=== PATIENT | female | born 1950 | race Caucasian/White ===

== ENCOUNTER 2016-12-31 09:29 | Outpatient (CLI) | payer MEDICARE, BC ==
--- NOTE | 2016-12-31 14:43 | CT ---
CT THORAX WITH IV CONTRAST: Date: 12-31-16 History: Follow up lung nodule. History of COPD. Comparison: 07-04-16 FINDINGS: There is a stable approximately 3 mm pulmonary nodule in the lateral aspect of the right middle lobe . No additional noncalcified pulmonary nodule or mass is seen. Calcified granuloma is again seen at the right lung base. No pleural effusion is identified. There is mild emphysematous changes seen wit hin the upper lobes. There is no evidence of lymphadenopathy. Vascular calcifications seen in the thoracic aorta as well as involving the visualized upper abdomin al aorta. Degenerative changes are seen in the thoracic spine. There is stable nodule involving the left adrenal gland. No other interval change. IMPRESSION: 1. Stable CT scan of thorax with stable approximately 3 mm nodule in the right middle lobe. No new p ulmonary nodule is seen. 2. Mild emphysematous changes in the upper lobes. 3. Stable nodular thickening left adrenal gland. POS: MORENO
[2016-12-31] MEDS ORDERED: Iopamidol 370 76% 100 ML VIAL ONE (16:30)
== END 2016-12-31 09:30 | disposition home or self-care (01) ==
LOC: CT 09:29
PROVIDERS: ATTEND Internal Medicine Critical Care Medicine
DX: J44.9 Chronic obstructive pulmonary disease, unspecified (principal); R91.1 Solitary pulmonary nodule
CPT/HCPCS: 36415; 71260; 82565

== ENCOUNTER 2017-11-07 10:43 | Outpatient (CLI) | payer MEDICARE, BC | END 2017-11-07 10:44 | disposition home or self-care (01) | LOC: BICMAMMO 10:43 | PROVIDERS: ATTEND Physician Assistant | DX: Z12.31 Encounter for screening mammogram for malignant neoplasm of breast (principal); R92.1 Mammographic calcification found on diagnostic imaging of breast; Z85.850 Personal history of malignant neoplasm of thyroid | CPT/HCPCS: 77063; 77067 ==

== ENCOUNTER 2018-02-26 13:23 | Outpatient (CLI) | payer MEDICARE, BC ==
--- NOTE | 2018-02-26 14:50 | CT ---
NONCONTRAST L0W DOSE CT THORAX: DATE: 02/26/2018. HISTORY: Smoking abuse. Right middle lobe pulmonary nodule. COMPARISON: 12/31/2016. FINDINGS: Again noted are emphysematous changes within the lungs bilaterally greater in the upper lobes. There is a stable noncalcified approximately 3 mm pulmonary nodule in the lateral right middle lobe. There is a tiny subpleural nodular density measuring less than 3 mm within the anterior aspect of th e left upper lobe. No additional noncalcified pulmonary nodule or mass is seen within the lungs. Calcified granuloma is again seen at the right lung base. Lack of intravenous contrast limits evaluation of the mediastinal structures and vasculature. Vascular calcifications are seen in the coronary arteries as well as involving the thoracic aorta. Visualized upper abdomen shows a grossly normal nonenhanced CT appearance. Mild degenerative changes are seen in the spine. IMPRESSION: 1. Lung RADS category 2, pulmonary nodule measuring 3 mm in the right middle lobe with tiny nodular density in the anterior left upper lobe which is stable since 2016 and has a low likelihood of becomi ng a clinically active cancer due to small size and stability. Continued annual screening with low-d ose CT scan in 12 months is recommended. 2. Vascular calcifications. POS: CATHLEEN
== END 2018-02-26 13:24 | disposition home or self-care (01) ==
LOC: CT 13:23
PROVIDERS: ATTEND Internal Medicine Critical Care Medicine
DX: Z87.891 Personal history of nicotine dependence (principal); J44.9 Chronic obstructive pulmonary disease, unspecified; R91.1 Solitary pulmonary nodule; J98.4 Other disorders of lung; I25.10 Atherosclerotic heart disease of native coronary artery without angina pectoris; I70.0 Atherosclerosis of aorta
CPT/HCPCS: G0297

== ENCOUNTER 2018-09-30 14:56 | Outpatient (CLI) | payer MEDICARE, BC ==
--- NOTE | 2018-09-30 16:12 | BD ---
Exam: DEXA Bone Density 09/30/18 HISTORY: Osteoporosis screening. COMPARISON: None. FINDINGS: Lumbar Spine: BMD (g/cm2) T-SCORE Z-SCORE L1 0.684 -2.8 -0.9 L2 0.723 -2.8 -0.7 L3 0.684 -3.6 -1.4 L4 0.638 -3.8 -1.6 L1-L4 0.682 -3.3 -1.2 WHO classification: Osteoporosis. Left Femoral Neck: 0.569 -2.5 -0.7 Total Femur: 0.659 -2.3 -0.8 WHO classification: Osteoporosis. Impression: Osteoporosis with elevated fracture risk. POS: HOME
== END 2018-09-30 14:57 | disposition home or self-care (01) ==
LOC: BICMAMMO 14:56
PROVIDERS: ATTEND Physician Assistant
DX: M81.0 Age-related osteoporosis without current pathological fracture (principal)
CPT/HCPCS: 77080

== ENCOUNTER 2019-02-26 11:43 | Outpatient (CLI) | payer MEDICARE, BC ==
--- NOTE | 2019-02-26 12:11 | CT ---
CT pulmonary lung scan without IV contrast INDICATION: Lung cancer screening protocol; history of tobacco use;current smoker of 55 years COMPARISON: CT of the chest dated July 04, [address] lung cancer screening evaluation dated 2017. FINDINGS: LUNGS: Nodules\mass: 3 mm right middle lobe pulmonary nodule has been stable since 2017 and is benign. There is a calcified granuloma in the right lower lobe. No suspicious pulmonary nodules evident. Emphysema: Stable moderate emphysema Additional findings: There are scattered coronary artery and thoracic aortic calcifications. Mediastinum: No lymphadenopathy. Upper abdomen: No abnormality. Osseous structures: There is scattered degenerative and osteoarthritic change present. IMPRESSION: Lung-RADS Category 1: Negative- Continue annual screening with LDCT in 12 months. Category S: None. Category C: Not applicable.
== END 2019-02-26 11:44 | disposition home or self-care (01) ==
LOC: CT 11:43
PROVIDERS: ATTEND Internal Medicine Critical Care Medicine
DX: R91.1 Solitary pulmonary nodule (principal); F17.210 Nicotine dependence, cigarettes, uncomplicated
CPT/HCPCS: G0297

== ENCOUNTER 2020-05-16 11:36 | Outpatient (CLI) | payer MEDICARE, BC ==
--- NOTE | 2020-05-16 13:02 | CT ---
EXAM: CT Pulmonary Lung Scan PROVIDED CLINICAL HISTORY: Tobacco abuse. 55 year history of smoking. History of thyroid cancer. COMPARISON: 02/26/2019 FINDINGS: A 4 mm right middle lobe pulmonary nodule is again seen laterally and is unchanged in size. A calcifi ed granuloma is again seen in the right lower lobe. A very tiny less than 3 mm nodular density is seen along the left major fissure also seen on prior study and probably related to interfissural lymp h node. Mild linear densities are seen in the posteromedial right lung base likely due to mild scarring. Emph ysematous changes are again seen throughout the lungs bilaterally. No consolidation or pleural effusion is identified. Vascular calcifications are seen in the thoracic aorta. There is limited evaluation of the mediastina l structures due to lack of intravenous contrast, but no enlarged lymph nodes are seen by CT size criteria. Visualized upper abdomen demonstrates grossly normal nonenhanced CT appearance. Degenerative changes are seen in the spine. IMPRESSION: 1. Lung RADS category 2: small 4 mm pulmonary nodule right middle lobe. Continued annual screening wi th low-dose CT scan in 12 months is recommended. 2. Category S: No clinically significant or potentially clinically significant additional findings.
== END 2020-05-16 11:37 | disposition home or self-care (01) ==
LOC: BICCT 11:36
PROVIDERS: ATTEND Internal Medicine Critical Care Medicine
DX: Z12.2 Encounter for screening for malignant neoplasm of respiratory organs (principal); R91.1 Solitary pulmonary nodule
CPT/HCPCS: 71271

== ENCOUNTER 2021-05-18 10:15 | Outpatient (CLI) | payer MEDICARE, BC | END 2021-05-18 10:16 | disposition home or self-care (01) | LOC: CT 10:15 | PROVIDERS: ATTEND Internal Medicine Critical Care Medicine | DX: Z12.2 Encounter for screening for malignant neoplasm of respiratory organs (principal); F17.210 Nicotine dependence, cigarettes, uncomplicated; J44.9 Chronic obstructive pulmonary disease, unspecified; I87.1 Compression of vein | CPT/HCPCS: 71271 ==

== ENCOUNTER 2023-06-07 10:04 | Outpatient (CLI) | payer MEDICARE, BC | END 2023-06-07 10:05 | disposition home or self-care (01) | LOC: BICCT 10:04 | PROVIDERS: ATTEND Internal Medicine Critical Care Medicine | DX: Z12.2 Encounter for screening for malignant neoplasm of respiratory organs (principal); Z87.891 Personal history of nicotine dependence; J44.9 Chronic obstructive pulmonary disease, unspecified; D35.02 Benign neoplasm of left adrenal gland; R91.8 Other nonspecific abnormal finding of lung field | CPT/HCPCS: 71271 ==

== ENCOUNTER 2023-08-08 14:17 | Outpatient (CLI) | payer MEDICARE, BC | END 2023-08-08 14:18 | disposition home or self-care (01) | LOC: BICMAMMO 14:17 | PROVIDERS: ATTEND Physician Assistant | DX: M81.0 Age-related osteoporosis without current pathological fracture (principal); M85.851 Other specified disorders of bone density and structure, right thigh | CPT/HCPCS: 77080 ==

== ENCOUNTER 2023-10-02 14:08 | Outpatient (CLI) | payer MEDICARE | END 2023-10-02 14:09 | disposition home or self-care (01) | LOC: BICCT 14:08 | PROVIDERS: ATTEND Physician Assistant | DX: R07.81 Pleurodynia (principal); E27.8 Other specified disorders of adrenal gland | CPT/HCPCS: 74160; 82565 ==

== ENCOUNTER 2023-12-04 10:47 | Outpatient (CLI) | payer MEDICARE, BC | END 2023-12-04 10:48 | disposition home or self-care (01) | LOC: BICCT 10:47 | PROVIDERS: ATTEND Physician Assistant | DX: R93.5 Abnormal findings on diagnostic imaging of other abdominal regions, including retroperitoneum (principal) | CPT/HCPCS: 74150 ==